=== PATIENT | female | born 1990 | race Caucasian/White ===

== ENCOUNTER 2017-03-03 23:05 | Outpatient (CLI) | payer BC ==
[~2017-03-03] VITALS: Ht 160 cm; Wt 83.2 kg
[~2017-03-03 23:05] MED LIST: ACET500C5 PO; CEPH-443 PO
[2017-03-03 23:39] VITALS: BP 97/71; PULSE 98; RESP 20
[2017-03-03] MEDS ORDERED: PRENAT PO (23:43)
--- NOTE | 2017-03-04 01:54 | PN ---
Triage Information Date/Time 03/04/17 Reason for visit: bug bite with picture of insect unknown Weeks of Gestation 32w4d /Para Diabetes: none Hypertention: none Additional information bitten site is pointed by patient on exact site Objective Vital Signs Date Time Temp Pulse Resp B/P Pulse Ox O2 Delivery O2 Flow Rate FiO2 03/03/17 23:39 98.2 98 20 97/71 Room Air Heart Rate: 130's Heart Rate Comments EFM reactive strip Contractions: None Exam skin on RLQ which suppose to be bitten area showed no erythematous change or induration Disposition: Discharge Assessment/Plan A IUP 32w4d S/P bug bite P discharge home ADRIAN GUSTAFSON MD Mar 04, 2017 01:54
--- NOTE | 2017-03-04 02:08 | TRIAGE ---
OB Triage Datetime Report Generated by CPN: 03/04/2017 02:08 Datetime: 03/03/2017 23:48 Stage of : OB Triage Monitor Mode: External Pattern: Normal: <= 5 Contractions in 10 Minutes Resting Tone [place]: Relaxed Heart Rate FHR Baseline Rate: 130 Monitor Mode: External US FHR Baseline Changes: No Baseline Change Variability: Moderate 6-25 bpm Accelerations: 15X15 Decelerations: None Category: Category I Datetime: 03/03/2017 23:15 Stage of : OB Triage Datetime: 03/03/2017 23:12 EGA: 32.4 Datetime: 03/03/2017 23:10 Stage of : OB Triage Time of Arrival: 03/03/2017 22:53 Arrived By: Ambulatory Chief Complaint: c/o 'bug bite on abdomen" at 2220 Movement: Present Contractions: Denies/Absent Rupture of Membranes: Denies Vaginal Bleeding: None Vaginal Discharge: Denies Recent Sexual Intercouse: Denies Abdominal Trauma: Not Applicable Patient Complaints: Other Time Provider Notified: 03/03/2017 23:10 Provider Notified: dR nAdino Initial Plan: EFM Maternal Assessment Level of Consciousness: Fully Conscious Headache: Denies Blurred Vision: No Respiratory Effort: Unlabored Nausea/Vomiting: Denies RUQ Epigastric Pain: Denies Facial Edema: None Labor Evaluation Frequency: placed Monitor Mode: External Resting Tone [place]: Relaxed Heart Rate FHR Baseline Rate: 140 Monitor Mode: External US Pain Assessment Pain Scale: 7 Pain Presence: Constant Pain Type: Sharp Pain Location: Abdomen
== END 2017-03-03 23:50 | disposition home or self-care (01) ==
LOC: OBT 23:05 → L-D 23:05 → OBT 23:50
PROVIDERS: ATTEND Obstetrics & Gynecology
DX: S30.861A Insect bite (nonvenomous) of abdominal wall, initial encounter (principal); W57.XXXA Bitten or stung by nonvenomous insect and other nonvenomous arthropods, initial encounter
CPT/HCPCS: G0463